=== PATIENT | male | born 1970 | race Two or more races ===

== ENCOUNTER 2021-02-03 08:59 | Emergency (ER) | payer OTHER ==
[~2021-02-03] VITALS: Ht 170.2 cm; Wt 82.1 kg
[2021-02-03] MEDS ORDERED: LIPITOR20 MG (09:13)
[2021-02-03] MEDS ORDERED: SKELAXIN800 MG PO (14:33)
[2021-02-03] MEDS ORDERED: PERCOCET 5-3251 EACH PO (14:33)
[2021-02-03] MEDS ORDERED: MEDROLPACK PO (14:33)
== END 2021-02-03 14:30 ==
LOC: ER 08:59
DX: S43.491A Other sprain of right shoulder joint, initial encounter (principal); M75.31 Calcific tendinitis of right shoulder; X50.0XXA Overexertion from strenuous movement or load, initial encounter; Y93.89 Activity, other specified; Y92.89 Other specified places as the place of occurrence of the external cause; Y99.8 Other external cause status